=== PATIENT | female | born 1955 | race Caucasian/White ===

== ENCOUNTER 2017-08-22 11:26 | Emergency (ER) | payer MEDICARE ==
[2017-08-22 11:32] VITALS: BP 125/87; PULSE 114; RESP 20; TEMP 98.9; O2SAT 96
[2017-08-22] MEDS ORDERED: INHALER (11:36)
[2017-08-22] MEDS ORDERED: methylPREDNISolone SOD SUCC 125 MG/2 ML VIAL IV PUSH ONE (12:30)
--- NOTE | 2017-08-22 13:07 | RADRPT ---
EXAM DATE/TIME: 08/22/2017 12:45 [facility] COMPARISON: No previous studies available for comparison. INDICATIONS : Cough, short of breath MEDICAL HISTORY : None. SURGICAL HISTORY : None. ENCOUNTER: Initial ACUITY: 1 day PAIN SCORE: 0/10 LOCATION: Bilateral chest FINDINGS: Mild, fine, diffuse interstitial opacities are seen of both lungs. Normal heart size. No pleural effu skyler or pneumothorax. CONCLUSION: Diffuse mild interstitial opacities suggesting atypical pneumonia or noncardiogenic edema. Ham Lennon MD on August 22, 2017 at 13:04 Board Certified Radiologist. This report was verified electronically.
--- NOTE | 2017-08-22 13:26 | PD ---
HPI Chief Complaint: Respiratory Symptoms Time Seen by Provider: 12:02 Travel History International Travel<30 days: No Contact w/Intl Traveler<30days: No Traveled to known affect area: No History of Present Illness HPI 61 year old female with hx of asthma here for eval of cough & wheezing x 4 days. She denies fever, chills, chest pain. Symptom severity is moderate. She reports using her current albuterol inhaler 2-3 times per day over the last 4 days with only mild symptom improvement. [facility] Past Medical History Asthma: Yes Past Surgical History Section: Yes Other Surgery: Yes (PINS AND PLATES IN LEGS) Social History Alcohol Use: No Tobacco Use: No Substance Use: No Allergies-Medications (Allergen,Severity, Reaction): Coded Allergies: No Known Allergies (Unverified , 08/22/17) Reported Meds & Prescriptions Reported Meds & Active Scripts Active Tessalon Perles (Benzonatate) 100 Mg Cap 100 Mg PO TID PRN 5 Days Ventolin Hfa 18 GM Inh (Albuterol Sulfate) 90 Mcg/Act Aer 2 Puff INH Q4H PRN Prednisone 20 Mg Tab 40 Mg PO DAILY Take 40 mg (2 tablets) daily for 5 days Levaquin (Levofloxacin) 750 Mg Tablet 750 Mg PO DAILY 5 Days Reported [Inhaler] Review of Systems Except as stated in HPI: all other systems reviewed are Neg General / Constitutional: No: Fever Respiratory: Positive: Cough, Shortness of Breath, Wheezing Physical Exam Narrative GENERAL: Well-nourished, well-developed patient. In no acute distress SKIN: Focused skin assessment warm/dry. HEAD: Normocephalic. EYES: No scleral icterus. No injection or drainage. NECK: Supple, trachea midline. No JVD or lymphadenopathy. CARDIOVASCULAR: Regular rate and rhythm without murmurs, gallops, or rubs. RESPIRATORY: Breath sounds equal bilaterally. No accessory muscle use. Diffuse mild expiratory wheezes bilaterally. GASTROINTESTINAL: Abdomen soft, non-tender, nondistended. MUSCULOSKELETAL: No cyanosis, or edema. BACK: Nontender without obvious deformity. No CVA tenderness. Data Data Last Documented VS Orders Orders Chest, Single Ap (08/22/17 12:22) Methylprednisolone So Succ Inj (Solumedr (08/22/17 12:30) MDM Medical Decision Making Medical Screen Exam Complete: Yes Emergency Medical Condition: Yes Differential Diagnosis PNA,asthma, influenza Narrative Course 61 year old female with hx of asthma here for eval of cough & wheezing x 4 days. She denies fever, chills, chest pain. On exam she has diffuse mild expiratory wheezes. She is nontoxic appearing and not in respiratory distress. Patient was given IV Solu-Medrol, DuoNeb 3, and chest x-ray. Chest x-ray suggestive of atypical pneumonia. On reexam patient reports symptom improvement and requesting discharge. She will be put on Levaquin, steroids, bronchodilator, antitussives and instructed to follow-up with her PCP in one to 2 days for recheck. Return precautions discussed. Patient verbalizes understanding and agrees to plan Diagnosis Primary Impression: Pneumonia Qualified Codes: J18.9 - Pneumonia, unspecified organism Referrals: Primary Care Physician Additional Instructions: take the medications as prescribed. rest & stay well hydrated. Follow up with your primary doctor return if you develop new or worsening symptoms Scripts Benzonatate (Tessalon Perles) 100 Mg Cap 100 MG PO TID Y for COUGH for 5 Days, CAP 0 Refills Prov: Marce Rey 08/22/17 Albuterol 18 GM Inh (Ventolin Hfa 18 GM Inh) 90 Mcg/Act Aer 2 PUFF INH Q4H Y for SHORTNESS OF BREATH, #1 INHALER 0 Refills Prov: Marce Rey 08/22/17 Prednisone (Prednisone) 20 Mg Tab 40 MG PO DAILY, #10 TAB 0 Refills Take 40 mg (2 tablets) daily for 5 days Prov: Marce Rey 08/22/17 Levofloxacin (Levaquin) 750 Mg Tablet 750 MG PO DAILY for Infection for 5 Days, #5 TAB 0 Refills Prov: Marce Rey 08/22/17 Disposition: 01 DISCHARGE HOME Condition: Stable Marce Rey Aug 22, 2017 13:26
[2017-08-22 13:35] VITALS: PULSE 92; RESP 20; O2SAT 95
[2017-08-22] MEDS ORDERED: PRED20 PO (13:48)
[2017-08-22] MEDS ORDERED: BENZ100 PO (13:48)
[2017-08-22] MEDS ORDERED: VENTAER INH (13:48)
[2017-08-22] MEDS ORDERED: LEVA750T9 PO (13:48)
== END 2017-08-22 14:19 | disposition home or self-care (01) ==
LOC: PHED 11:26 → PHEFT 14:19
DX: J18.9 Pneumonia, unspecified organism (principal)
CPT/HCPCS: 71010; 96374; 99284; J2930

== ENCOUNTER 2017-10-21 12:25 | Inpatient (IN) | payer MEDICARE ==
[~2017-10-21] VITALS: Ht 162.6 cm; Wt 121.9 kg
[~2017-10-21 12:25] MED LIST: BENZ100 PO; INHALER; LEVA750T9 PO; PRED20 PO; VENTAER INH
[2017-10-21 12:27] VITALS: BP 137/70; PULSE 95; RESP 20; TEMP 101.2; O2SAT 90
[2017-10-21] MEDS ORDERED: SODIUM CHLOR 0.9% 1000 ML INJ 1,000 ML IV ONE (12:37)
[2017-10-21] MEDS ORDERED: cefTRIAXone INJ 2,000 MG in SODIUM CHLORIDE 0.9% INJ 100 ML IV STA (12:37)
[2017-10-21] MEDS ORDERED: AZITHROMYCIN 250 MG TAB PO STA (12:37)
--- NOTE | 2017-10-21 12:43 | PD ---
HPI Chief Complaint: Respiratory Distress Time Seen by Provider: 12:37 Travel History International Travel<30 days: Yes Contact w/Intl Traveler<30days: Yes Name of Country Traveled to: [place], [place] Traveled to known affect area: No History of Present Illness HPI 61-year-old female comes in status post being seen at a local urgent care and diagnosed with pneumonia. Patient is noticed to be febrile, and O2 sat of 89% on room air.. Patient states she's been sick for approximately 3 days. Patient normally does not need oxygen at home. She feels weak, wheezy, and short of breath. Patient states she does use a nebulizer at home but denies specific lung disease. Patient denies nausea or vomiting. She denies chest pain. Vital signs show probable sepsis. She has no known drug allergies. PFSH Past Medical History Asthma: Yes Past Surgical History Section: Yes Other Surgery: Yes (PINS AND PLATES IN LEGS) Social History Alcohol Use: No Tobacco Use: No Substance Use: No Allergies-Medications (Allergen,Severity, Reaction): Coded Allergies: No Known Allergies (Unverified , 10/21/17) Reported Meds & Prescriptions Reported Meds & Active Scripts Active Tessalon Perles (Benzonatate) 100 Mg Cap 100 Mg PO TID PRN 5 Days Ventolin Hfa 18 GM Inh (Albuterol Sulfate) 90 Mcg/Act Aer 2 Puff INH Q4H PRN Prednisone 20 Mg Tab 40 Mg PO DAILY Take 40 mg (2 tablets) daily for 5 days Levaquin (Levofloxacin) 750 Mg Tablet 750 Mg PO DAILY 5 Days Reported [Inhaler] Review of Systems Except as stated in HPI: all other systems reviewed are Neg General / Constitutional: Positive: Fever, Chills Eyes: No: Visual changes HENT: No: Headaches, Vertigo, Lightheadedness, Sore Throat, Rhinitis, Rhinorrhea, Congestion, Nosebleed, Neck Stiffness, Neck Pain, Earache Cardiovascular: No: Chest Pain or Discomfort Respiratory: Positive: Cough, Shortness of Breath, Wheezing, Orthopnea, Night Sweats, No: Sneezing, Hemoptysis, Stridor, Pleuritic Pain Gastrointestinal: No: Nausea, Vomiting, Diarrhea, Abdominal Pain Genitourinary: No: Dysuria Musculoskeletal: No: Pain Skin: No Rash Neurologic: No: Weakness Psychiatric: No: Depression Endocrine: No: Polydipsia Hematologic/Lymphatic: No: Easy Bruising Physical Exam Narrative GENERAL: Patient appears mildly distressed. She is able to speak in short sentences. SKIN: Warm and dry. Normal color. Normal turgor. No diaphoresis. HEAD: Atraumatic. Normocephalic. EYES: Pupils equal and round. No scleral icterus. No injection or drainage. ENT: No nasal bleeding or discharge. Mucous membranes pink and moist. Posterior pharynx is clear. Airway is patent. NECK: Trachea midline. No JVD. Supple nontender. CARDIOVASCULAR: Regular rate and rhythm. No murmurs gallops or rubs. RESPIRATORY: Mild to moderate accessory muscle use. Diffuse wheezes throughout to auscultation. Breath sounds equal bilaterally. GASTROINTESTINAL: Abdomen soft, non-tender, nondistended. Hepatic and splenic margins not palpable. MUSCULOSKELETAL: Extremities without clubbing, cyanosis, or edema. No obvious deformities. NEUROLOGICAL: Awake and alert. No obvious cranial nerve deficits. Motor grossly within normal limits. Five out of 5 muscle strength in the arms and legs. Normal speech. PSYCHIATRIC: Appropriate mood and affect; insight and judgment normal. Data Data Last Documented VS Vital Signs Date Time Temp Pulse Resp B/P (MAP) Pulse Ox O2 Delivery O2 Flow Rate FiO2 10/21/17 13:23 89 Room Air 10/21/17 13:09 2.00 10/21/17 12:27 101.2 95 20 Orders Orders Sepsis Workup Initiated (10/21/17 ) Complete Blood Count With Diff (10/21/17 12:37) Comprehensive Metabolic Panel (10/21/17 12:37) Prothrombin Time / Inr (Pt) (10/21/17 12:37) Act Partial Throm Time (Ptt) (10/21/17 12:37) Lactic Acid Sepsis Protocol (10/21/17 12:37) Magnesium (Mg) (10/21/17 12:37) Urinalysis - C+S If Indicated (10/21/17 12:37) Influenzae A/B Antigen (10/21/17 12:37) Blood Culture (10/21/17 12:37) Sputum Culture And Gram Stain (10/21/17 12:37) Chest, Pa & Lat (10/21/17 12:37) Blood Gas Venous (Vbg) (10/21/17 12:37) Ecg Monitoring (10/21/17 12:37) Iv Access Insert/Monitor (10/21/17 12:37) Oximetry (10/21/17 12:37) Oxygen Administration (10/21/17 12:37) Acetaminophen (Tylenol) (10/21/17 12:45) Ceftriaxone Inj (Rocephin Inj) (10/21/17 12:37) Azithromycin (Zithromax) (10/21/17 12:37) Albuterol-Ipratropium Neb (Duoneb Neb) (10/21/17 12:45) Methylprednisolone So Succ Inj (Solumedr (10/21/17 12:45) Sodium Chlor 0.9% 1000 Ml Inj (Ns 1000 M (10/21/17 12:37) Electrocardiogram (10/21/17 ) Oseltamivir (Tamiflu) (10/21/17 15:15) Place In Observation (10/21/17 ) Vital Signs (Adult) Q4H (10/21/17 15:33) Activity Oob With Assistance (10/21/17 15:33) Rotary Furnace Tender / Telemetry .CONTINUOUS (10/21/17 15:33) Diet Heart Healthy (10/21/17 Dinner) Sodium Chloride 0.9% Flush (Ns Flush) (10/21/17 15:45) Sodium Chloride 0.9% Flush (Ns Flush) (10/21/17 21:00) Basic Metabolic Panel (Bmp) (10/22/17 06:00) Complete Blood Count With Diff (10/22/17 06:00) Naloxone Inj (Narcan Inj) (10/21/17 15:45) Resp Oxygen Nasal Cannula (10/21/17 ) B-Type Natriuretic Peptide (10/21/17 15:33) Admit Order (Ed Use Only) (10/21/17 15:37) Labs Laboratory Tests Test 10/21/17 13:00 10/21/17 13:10 10/21/17 13:20 Urine Color YELLOW Urine Turbidity CLOUDY Urine pH 5.5 Urine Specific [place] 1.024 Urine Protein TRACE mg/dL Urine Glucose (UA) NEG mg/dL Urine Ketones 10 mg/dL Urine Occult Blood TRACE Urine Nitrite NEG Urine Bilirubin NEG Urine Urobilinogen LESS THAN 2.0 MG/DL Urine Leukocyte Esterase NEG Urine RBC 2 /hpf Urine WBC 1 /hpf Urine Squamous Epithelial Cells <1 /hpf Urine Amorphous Sediment MANY Urine Mucus FEW /lpf Microscopic Urinalysis Comment CATH-CULT NOT IND White Blood Count 7.6 TH/MM3 Red Blood Count 4.77 MIL/MM3 Hemoglobin 14.5 GM/DL Hematocrit 41.3 % Mean Corpuscular Volume 86.6 FL Mean Corpuscular Hemoglobin 30.4 PG Mean Corpuscular Hemoglobin Concent 35.1 % Red Cell Distribution Width 14.5 % Platelet Count 153 TH/MM3 Mean Platelet Volume 7.5 FL Neutrophils (%) (Auto) 72.5 % Lymphocytes (%) (Auto) 12.4 % Monocytes (%) (Auto) 12.2 % Eosinophils (%) (Auto) 2.1 % Basophils (%) (Auto) 0.8 % Neutrophils # (Auto) 5.5 TH/MM3 Lymphocytes # (Auto) 0.9 TH/MM3 Monocytes # (Auto) 0.9 TH/MM3 Eosinophils # (Auto) 0.2 TH/MM3 Basophils # (Auto) 0.1 TH/MM3 CBC Comment AUTO DIFF Differential Comment AUTO DIFF CONFIRMED Prothrombin Time 10.5 SEC Prothromb Time International Ratio 1.0 RATIO Activated Partial Thromboplast Time 24.0 SEC Blood Urea Nitrogen 10 MG/DL Creatinine 0.80 MG/DL Random Glucose 110 MG/DL Total Protein 6.8 GM/DL Albumin 3.2 GM/DL Calcium Level 8.1 MG/DL Magnesium Level 2.1 MG/DL Alkaline Phosphatase 84 U/L Aspartate Amino Transf (AST/SGOT) 64 U/L Alanine Aminotransferase (ALT/SGPT) 57 U/L Total Bilirubin 0.8 MG/DL Sodium Level 140 MEQ/L Potassium Level 3.8 MEQ/L Chloride Level 104 MEQ/L Carbon Dioxide Level 27.8 MEQ/L Anion Gap 8 MEQ/L Estimat Glomerular Filtration Rate 72 ML/MIN Lactic Acid Level 1.4 mmol/L Blood Gas Puncture Site IV Blood Gas Patient Temperature 98.6 Venous Blood pH 7.38 Venous Blood Partial Pressure CO2 39 mmHg Venous Blood Partial Pressure O2 42 mmHg Venous Blood HCO3 22 mmol/L Venous Blood Oxygen Saturation 77 % Venous Blood Oxygen Content 16.0 Vol % Venous Blood Base Excess -2.0 mmol/L Oxygen Delivery Device NASAL CANNULA Blood Gas Liter Flow 2 L/M [facility] Medical Decision Making Medical Screen Exam Complete: Yes Emergency Medical Condition: Yes Differential Diagnosis Sepsis. Pneumonia. Hypoxia. Narrative Course Patient is medically stable at time of exam. Sepsis protocol was initiated. Chest x-ray PA and lateral was ordered. Labs ordered including CBC, CMP, lactic acid protocol, rapid influenza, sputum sample and venous blood gas. DuoNeb 3 is ordered. Patient is given 125 mg Solu-Medrol IV as well as azithromycin 500 mg by mouth as well as 2000 mg Rocephin IV. Patient is given 1000 mL normal saline bolus. Chest x-ray shows mild increased interstitial markings bilaterally consistent with pneumonitis or pulmonary vascular congestion. Per radiologist. CBC is actually unremarkable except for 72.5% shift in neutrophils. Coagulation studies are normal. CMP is unremarkable except for GFR 72, random glucose 110, lactic acid is 1.4. Calcium is 8.1, AST and ALT are slightly elevated at 64 and 57 respectively. Urinalysis is unremarkable. Venous blood gas shows a PCO2 of 39, PO2 of 42, and an O2 saturation of 77. This is on 2 L of O2 via nasal cannula. Call was placed to hospitalist for admission. Diagnosis Primary Impression: Pneumonia Qualified Codes: J18.9 - Pneumonia, unspecified organism Additional Impressions: Hypoxia Influenza A Admitting Information Admitting Physician Requests: Admit Condition: Stable Khris Britton Oct 21, 2017 12:43
[2017-10-21] MEDS ORDERED: methylPREDNISolone SOD SUCC 125 MG/2 ML VIAL IV PUSH ONE (12:45)
[2017-10-21] MEDS ORDERED: ACETAMINOPHEN 325 MG TAB PO ONE (12:45)
[2017-10-21 13:09] VITALS: O2SAT 95
[2017-10-21] MEDS: RESP: ALBUTEROL 2.5 MG/IPRATROPIUM 0.5 MG NEB (SCH) INH (13:09)
[2017-10-21 13:23] VITALS: O2SAT 89
[2017-10-21 13:48] LABS: AUTOMATED NEUTROPHIL # 5.5 TH/MM3 (1.8-7.7); BASOPHIL # 0.1 TH/MM3 (0-0.2); BASOPHIL % 0.8 % (0.0-2.0); EOSINOPHIL # 0.2 TH/MM3 (0-0.4); EOSINOPHIL % 2.1 % (0.0-4.0); HEMATOCRIT 41.3 % (35.0-46.0); HEMOGLOBIN 14.5 GM/DL (11.6-15.3); LYMPH % 12.4 % (9.0-44.0); LYMPHOCYTE # 0.9 TH/MM3 (1.0-4.8); MEAN CELL VOLUME 86.6 FL (80.0-100.0); MEAN CORPUSCULAR HEMOGLOBIN 30.4 PG (27.0-34.0); MEAN CORPUSCULAR HGB CONC 35.1 % (32.0-36.0); MEAN PLATELET VOLUME 7.5 FL (7.0-11.0); MONO % 12.2 % (0.0-8.0); MONOCYTE # 0.9 TH/MM3 (0-0.9); NEUT % 72.5 % (16.0-70.0); PLATELET COUNT 153 TH/MM3 (150-450); RED BLOOD COUNT 4.77 MIL/MM3 (4.00-5.30); RED CELL DISTRIBUTION WIDTH 14.5 % (11.6-17.2); WHITE BLOOD COUNT 7.6 TH/MM3 (4.0-11.0)
[2017-10-21 13:53] LABS: AMORPHOUS SEDIMENT, URINE MANY; BLOOD, URINE TRACE (NEG); GLUCOSE,URINE NEG (NEG); KETONE, URINE 10 mg/dL (NEG); MUCUS URINE FEW /lpf (OCC); NITRITE,URINE NEG (NEG); PH, URINE 5.5 (5.0-8.5); SQUAMOUS EPITHELIAL CELL URINE <1 /hpf (0-5); URINE COLOR YELLOW (YELLW/STRAW); URINE LEUKOCYTE ESTERASE NEG (NEG)
[2017-10-21 14:00] LABS: BILIRUBIN, URINE NEG (NEG)
[2017-10-21 14:00] LABS: PROTHROMBIN TIME - PATIENT 10.5 SEC (9.8-11.6)
--- NOTE | 2017-10-21 14:07 | RADRPT ---
EXAM DATE/TIME: 10/21/2017 13:54 [facility] COMPARISON: No previous studies available for comparison. INDICATIONS : Fever, cough and repeated pneumonia. MEDICAL HISTORY : pneumonia SURGICAL HISTORY : None. ENCOUNTER: Initial ACUITY: 3 days PAIN SCORE: 0/10 LOCATION: Bilateral chest FINDINGS: There is a suboptimal inspiration. Mild increased interstitial markings are noted bilaterally consist ent with pneumonitis or pulmonary vascular congestion. CONCLUSION: 1. Mild increased interstitial markings bilaterally consistent with pneumonitis or pulmonary vascular congestion. 2. Suboptimal inspiration. Mj Downs MD on October 21, 2017 at 14:04 Board Certified Radiologist. This report was verified electronically.
[2017-10-21 14:09] LABS: ALBUMIN 3.2 GM/DL (3.4-5.0); ALKALINE PHOSPHATASE 84 U/L (45-117); ALT (GPT) 57 U/L (10-53); AST (GOT) 64 U/L (15-37); BICARBONATE 27.8 MEQ/L (21.0-32.0); BLOOD UREA NITROGEN 10 MG/DL (7-18); CALCIUM 8.1 MG/DL (8.5-10.1); CHLORIDE 104 MEQ/L (98-107); GLOMERULAR FILTRATION RATE 72 ML/MIN (>89); GLUCOSE,RANDOM 110 MG/DL (74-106); MAGNESIUM 2.1 MG/DL (1.5-2.5); SODIUM (NA) 140 MEQ/L (136-145); TOTAL BILIRUBIN ADULT 0.8 MG/DL (0.2-1.0); TOTAL PROTEIN 6.8 GM/DL (6.4-8.2)
--- NOTE | 2017-10-21 14:09 | PD ---
Physical Exam Date Seen by Provider: Oct 21, 2017 Narrative This patient was sent to us from urgent care for admission for pneumonia. She was seen there earlier today and diagnosed with pneumonia. She was sent to us because of hypoxia. She is now on oxygen and states that her breathing is okay. Data Data Last Documented VS Vital Signs Date Time Temp Pulse Resp B/P (MAP) Pulse Ox O2 Delivery O2 Flow Rate FiO2 10/21/17 13:23 89 Room Air 10/21/17 13:09 2.00 10/21/17 12:27 101.2 95 20 Orders Orders Sepsis Workup Initiated (10/21/17 ) Complete Blood Count With Diff (10/21/17 12:37) Comprehensive Metabolic Panel (10/21/17 12:37) Prothrombin Time / Inr (Pt) (10/21/17 12:37) Act Partial Throm Time (Ptt) (10/21/17 12:37) Lactic Acid Sepsis Protocol (10/21/17 12:37) Magnesium (Mg) (10/21/17 12:37) Urinalysis - C+S If Indicated (10/21/17 12:37) Influenzae A/B Antigen (10/21/17 12:37) Blood Culture (10/21/17 12:37) Sputum Culture And Gram Stain (10/21/17 12:37) Chest, Pa & Lat (10/21/17 12:37) Blood Gas Venous (Vbg) (10/21/17 12:37) Ecg Monitoring (10/21/17 12:37) Iv Access Insert/Monitor (10/21/17 12:37) Oximetry (10/21/17 12:37) Oxygen Administration (10/21/17 12:37) Acetaminophen (Tylenol) (10/21/17 12:45) Ceftriaxone Inj (Rocephin Inj) (10/21/17 12:37) Azithromycin (Zithromax) (10/21/17 12:37) Albuterol-Ipratropium Neb (Duoneb Neb) (10/21/17 12:45) Methylprednisolone So Succ Inj (Solumedr (10/21/17 12:45) Sodium Chlor 0.9% 1000 Ml Inj (Ns 1000 M (10/21/17 12:37) Electrocardiogram (10/21/17 ) Labs Laboratory Tests Test 10/21/17 13:00 10/21/17 13:10 10/21/17 13:20 Urine Color YELLOW Urine Turbidity CLOUDY Urine pH 5.5 Urine Specific [place] 1.024 Urine Protein TRACE mg/dL Urine Glucose (UA) NEG mg/dL Urine Ketones 10 mg/dL Urine Occult Blood TRACE Urine Nitrite NEG Urine Bilirubin NEG Urine Urobilinogen LESS THAN 2.0 MG/DL Urine Leukocyte Esterase NEG Urine RBC 2 /hpf Urine WBC 1 /hpf Urine Squamous Epithelial Cells <1 /hpf Urine Amorphous Sediment MANY Urine Mucus FEW /lpf Microscopic Urinalysis Comment CATH-CULT NOT IND White Blood Count 7.6 TH/MM3 Red Blood Count 4.77 MIL/MM3 Hemoglobin 14.5 GM/DL Hematocrit 41.3 % Mean Corpuscular Volume 86.6 FL Mean Corpuscular Hemoglobin 30.4 PG Mean Corpuscular Hemoglobin Concent 35.1 % Red Cell Distribution Width 14.5 % Platelet Count 153 TH/MM3 Mean Platelet Volume 7.5 FL Neutrophils (%) (Auto) 72.5 % Lymphocytes (%) (Auto) 12.4 % Monocytes (%) (Auto) 12.2 % Eosinophils (%) (Auto) 2.1 % Basophils (%) (Auto) 0.8 % Neutrophils # (Auto) 5.5 TH/MM3 Lymphocytes # (Auto) 0.9 TH/MM3 Monocytes # (Auto) 0.9 TH/MM3 Eosinophils # (Auto) 0.2 TH/MM3 Basophils # (Auto) 0.1 TH/MM3 CBC Comment AUTO DIFF Prothrombin Time 10.5 SEC Prothromb Time International Ratio 1.0 RATIO Activated Partial Thromboplast Time 24.0 SEC Lactic Acid Level 1.4 mmol/L Blood Gas Puncture Site IV Blood Gas Patient Temperature 98.6 Venous Blood pH 7.38 Venous Blood Partial Pressure CO2 39 mmHg Venous Blood Partial Pressure O2 42 mmHg Venous Blood HCO3 22 mmol/L Venous Blood Oxygen Saturation 77 % Venous Blood Oxygen Content 16.0 Vol % Venous Blood Base Excess -2.0 mmol/L Oxygen Delivery Device NASAL CANNULA Blood Gas Liter Flow 2 L/M MDM Supervised Visit with KALEB: Yes Narrative Course I, Dr. Rinaldi, have reviewed the advance practice practitioner's documentation and am in agreement, met with the patient face to face, made the diagnosis, and the medical decision making was done by me. *My assessment and Findings: This patient is awake and alert and in no respiratory distress while on oxygen. Please see Danis Britton PA-C's note for results of laboratory and radiographic evaluation, ED course, final diagnosis and disposition Condition: Alexa Collins MD Oct 21, 2017 14:09
[2017-10-21] MEDS ORDERED: OSELTAMIVIR PHOSPHATE 75 MG CAP PO ONE (15:15)
[2017-10-21] MEDS ORDERED: SODIUM CHLORIDE 0.9% FLUSH 10 ML FLUSH IV FLUSH PRN (15:45)
[2017-10-21] MEDS ORDERED: NALOXONE HCL 0.4 MG/ML AMP IV PUSH PRN (15:45)
[2017-10-21 15:59] VITALS: BP 147/68; PULSE 85; RESP 20; TEMP 97.8; O2SAT 92
--- NOTE | 2017-10-21 17:11 | HHI.HP ---
[facility] Service [facility] Primary Care Physician Anastasia Rendon MD Admission Diagnosis Influenza/Pneumonia/Hypoxia Diagnoses: (1) Hypoxia Diagnosis: Principal (2) Influenza A Diagnosis: Principal Chief Complaint: Deep cough with congestion Travel History International Travel<30 Days: Yes Contact w/Intl Traveler <30 Da: Yes Name of Country Traveled to: [place] Traveled to Known Affected Are: No History of Present Illness Written by Parker Baldwin, acting as scribe for Dr. Edwards on 10/21/17 at 17:11. 61-year-old patient with only reported past medical history of using nebulizers for occasional chest congestion and sinus congestion. reports that she she had deep chest cough , urgent care doc told her she was PNA cough started not really productive on Thursday, temp last night states she was hot. 100 temp at urgent care. SOB with cough. No chills. Denies chest pain, nausea, or diarrhea. Denies black or bloody stools, no syncope, no abdominal pain Patient just came back from 8 night rylie, she had been drinking. She repots leg swelling for a long time. No orthopnea no SOB lying down. Got back Thursday AM began to feel bad on Thursday PM No other ill contacts at home. Denies prolonged sitting [place]yl[place] took off from [place] Has never needed steroids for respiratory issues Past Family Social History Past Medical History Nebulizer to clear her lungs. Reports that at time she is not getting enough air in her lungs rx by PCP . states her o2 sats will drop when she is in her MD office. Has not been told that she needs o2 ENT for sinus symptoms Past Surgical History 3 c-sections Bilateral leg fractures with instrumentation Allergies: Coded Allergies: No Known Allergies (Unverified , 10/21/17) Family History Father esophageal CA smoker Father was a smoker and smoked in house. mother Brother: renal disease on dialysis, CAD with CABG Social History Tobacco: denies, denies second hand smoke Alcohol: Denies Illicit drug use: Denies Worked in sales, now on disability Physical Exam Vital Signs Vital Signs Date Time Temp Pulse Resp B/P (MAP) Pulse Ox O2 Delivery O2 Flow Rate FiO2 10/21/17 13:23 89 Room Air 10/21/17 13:23 89 Room Air 10/21/17 13:09 95 Nasal Cannula 2.00 10/21/17 12:27 101.2 95 20 137/70 (92) 90 Room Air Physical Exam GENERAL: This is a well-nourished, well-developed patient, in no apparent distress. SKIN: No rashes, ecchymoses or lesions. Cool and dry. HEAD: Atraumatic. Normocephalic. No temporal or scalp tenderness. EYES: Pupils equal round and reactive. Extraocular motions intact. No scleral icterus. No injection or drainage. ENT: Nose without bleeding, purulent drainage or septal hematoma. Throat without erythema, tonsillar hypertrophy or exudate. Uvula midline. Airway patent. NECK: Trachea midline. No JVD or lymphadenopathy. Supple, nontender, no meningeal signs. CARDIOVASCULAR: Regular rate and rhythm without murmurs, gallops, or rubs. RESPIRATORY: Clear to auscultation. Breath sounds equal bilaterally. No wheezes , rales, or rhonchi. GASTROINTESTINAL: Abdomen soft, non-tender, nondistended. No hepato-splenomegaly , or palpable masses. No guarding. MUSCULOSKELETAL: Extremities without clubbing, cyanosis, or edema. No joint tenderness, effusion, or edema noted. No calf tenderness. Negative Homans sign bilaterally. NEUROLOGICAL: Awake and alert. Cranial nerves II through XII intact. Motor and sensory grossly within normal limits. Five out of 5 muscle strength in all muscle groups. Normal speech. Laboratory Laboratory Tests Test 10/21/17 13:00 10/21/17 13:10 10/21/17 13:20 Urine Color YELLOW Urine Turbidity CLOUDY Urine pH 5.5 Urine Specific [place] 1.024 Urine Protein TRACE Urine Glucose (UA) NEG Urine Ketones 10 Urine Occult Blood TRACE Urine Nitrite NEG Urine Bilirubin NEG Urine Urobilinogen LESS THAN 2.0 Urine Leukocyte Esterase NEG Urine RBC 2 Urine WBC 1 Urine Squamous Epithelial Cells <1 Urine Amorphous Sediment MANY Urine Mucus FEW Microscopic Urinalysis Comment CATH-CULT NOT IND White Blood Count 7.6 Red Blood Count 4.77 Hemoglobin 14.5 Hematocrit 41.3 Mean Corpuscular Volume 86.6 Mean Corpuscular Hemoglobin 30.4 Mean Corpuscular Hemoglobin Concent 35.1 Red Cell Distribution Width 14.5 Platelet Count 153 Mean Platelet Volume 7.5 Neutrophils (%) (Auto) 72.5 Lymphocytes (%) (Auto) 12.4 Monocytes (%) (Auto) 12.2 Eosinophils (%) (Auto) 2.1 Basophils (%) (Auto) 0.8 Neutrophils # (Auto) 5.5 Lymphocytes # (Auto) 0.9 Monocytes # (Auto) 0.9 Eosinophils # (Auto) 0.2 Basophils # (Auto) 0.1 CBC Comment AUTO DIFF Differential Comment AUTO DIFF CONFIRMED Prothrombin Time 10.5 Prothromb Time International Ratio 1.0 Activated Partial Thromboplast Time 24.0 Blood Urea Nitrogen 10 Creatinine 0.80 Random Glucose 110 Total Protein 6.8 Albumin 3.2 Calcium Level 8.1 Magnesium Level 2.1 Alkaline Phosphatase 84 Aspartate Amino Transf (AST/SGOT) 64 Alanine Aminotransferase (ALT/SGPT) 57 Total Bilirubin 0.8 Sodium Level 140 Potassium Level 3.8 Chloride Level 104 Carbon Dioxide Level 27.8 Anion Gap 8 Estimat Glomerular Filtration Rate 72 Lactic Acid Level 1.4 Blood Gas Puncture Site IV Blood Gas Patient Temperature 98.6 Venous Blood pH 7.38 Venous Blood Partial Pressure CO2 39 Venous Blood Partial Pressure O2 42 Venous Blood HCO3 22 Venous Blood Oxygen Saturation 77 Venous Blood Oxygen Content 16.0 Venous Blood Base Excess -2.0 Oxygen Delivery Device NASAL CANNULA Blood Gas Liter Flow 2 Date/Time Source Procedure Growth Status 10/21/17 13:20 Blood Peripheral Aerobic Blood Culture Pending Received 10/21/17 13:20 Blood Peripheral Anaerobic Blood Culture Pending Received 10/21/17 14:20 Nasal Washing Influenza Types A,B Antigen (NACHO) - Final Positive For Flu A Antigen Complete Result Diagram: 10/21/17 1310 10/21/17 1310 Imaging Last Impressions Chest X-Ray 10/21/17 1237 Signed Impressions: Service Date/Time: Saturday, October 21, 2017 13:54 - CONCLUSION: 1. Mild increased interstitial markings bilaterally consistent with pneumonitis or pulmonary vascular congestion. 2. Suboptimal inspiration. MD Nimo De Souza VTE Risk Assessment Caprini Risk Assessment Model Point Value = 1 Point Value = 2 Point Value = 3 Point Value = 5 Age 41-60 Minor surgery BMI > 25 kg/m2 Swollen legs Varicose veins or History of unexplained or recurrent spontaneous Oral contraceptives or hormone replacement Sepsis (< 1 month) Serious lung disease, including pneumonia (< 1 month) Abnormal pulmonary function Acute myocardial infarction Congestive heart failure (< 1 month) History of inflammatory bowel disease Medical patient at bed rest Age 61-74 Arthroscopic surgery Major open surgery (> 45 min) Laparoscopic surgery (> 45 min) Malignancy Confined to bed (> 72 hours) Immobilizing plaster cast Central venous access Age >= 75 History of VTE Family history of VTE Factor V Leiden Prothrombin [id number] Lupus anticoagulant Anticardiolipin antibodies Elevated serum homocysteine Heparin-induced thrombocytopenia Other congenital or acquired thrombophilia Stroke (< 1 month) Elective arthroplasty Hip, pelvis, or leg fracture Acute spinal cord injury (< 1 month) Prophylaxis Regimen Total Risk Factor Score Risk Level Prophylaxis Regimen 0-1 Low Early ambulation 2 Moderate Order ONE of the following: *Sequential Compression Device (SCD) *Heparin 5000 units SQ BID 3-4 Higher Order ONE of the following medications: *Heparin 5000 units SQ TID *Enoxaparin/Lovenox 40 mg SQ daily (WT < 150 kg, CrCl > 30 mL/min) *Enoxaparin/Lovenox 30 mg SQ daily (WT < 150 kg, CrCl > 10-29 mL/min) *Enoxaparin/Lovenox 30 mg SQ BID (WT < 150 kg, CrCl > 30 mL/min) AND/OR *Sequential Compression Device (SCD) 5 or more Highest Order ONE of the following medications: *Heparin 5000 units SQ TID (Preferred with Epidurals) *Enoxaparin/Lovenox 40 mg SQ daily (WT < 150 kg, CrCl > 30 mL/min) *Enoxaparin/Lovenox 30 mg SQ daily (WT < 150 kg, CrCl > 10-29 mL/min) *Enoxaparin/Lovenox 30 mg SQ BID (WT < 150 kg, CrCl > 30 mL/min) AND *Sequential Compression Device (SCD) Assessment and Plan Assessment and Plan Hypoxia Parker Baldwin Oct 21, 2017 17:11
--- NOTE | 2017-10-21 17:40 | HHI.HP ---
[facility] Service [place] [facility] Primary Care Physician Anastasia Rendon MD Admission Diagnosis Influenza/Pneumonia/Hypoxia Diagnoses: (1) Hypoxia Diagnosis: Principal (2) Influenza A Diagnosis: Principal Chief Complaint: Deep cough with congestion. Travel History International Travel<30 Days: Yes Contact w/Intl Traveler <30 Da: Yes Name of Country Traveled to: [place] Traveled to Known Affected Are: No History of Present Illness Written by Parker Baldwin, acting as scribe for Dr. Edwards on 10/21/17 at 17:11. 61-year-old patient with only reported past medical history of using nebulizers for occasional chest congestion, sinus congestion, and bilateral leg fractures. Reports that she was recently on an 8 night curse which took off from [place]. During the cruise patient reports that she was drinking alcohol and noticed leg swelling, although after further questioning she reports that she has had bilateral leg swelling for some time. She returned back from her curse this past Thursday morning and that night she began to have what she describes as a deep chest cough, nonproductive. She did experience warm feeling at home but did not check her temperature at home. She endorses SOB with cough, denies orthopnea. She went to an urgent care center and was told her she had possible pneumonia. She also ports that when she was in urgent care her temperature was 100.0. She denies any chills, nausea, vomiting, diarrhea, abdominal pain, chest pain. Denies black or bloody stools, dizziness, or lightheadedness. She denies any ill contacts at home but was on a rylie with many people. She reports that she has been using nebulizer treatments at home for what she repots as chest congestion. States that her PCP has been prescribing her nebulizers since she has also had low oxygen saturation levels when she is into visit him. She denies ever needing steroids for breathing difficulties, does not use oxygen at home. She denies exposure to pain, working in coal mines or cigarette smoking. She does admit that her father was a smoker and would smoke inside the home. Review of Systems Constitutional: COMPLAINS OF: Fever Respiratory: COMPLAINS OF: Cough, Shortness of breath Cardiovascular: COMPLAINS OF: Lower Extremity Edema Except as stated in HPI: all other systems reviewed are Neg Past Family Social History Past Medical History Lung congestion for which she uses nebulizer treatments Sinus congestions, sees ENT Past Surgical History 3 c-sections Bilateral leg fractures with instrumentation and repair Reported Medications Reported Meds & Active Scripts Active Tessalon Perles (Benzonatate) 100 Mg Cap 100 Mg PO TID PRN 5 Days Ventolin Hfa 18 GM Inh (Albuterol Sulfate) 90 Mcg/Act Aer 2 Puff INH Q4H PRN Prednisone 20 Mg Tab 40 Mg PO DAILY Take 40 mg (2 tablets) daily for 5 days Levaquin (Levofloxacin) 750 Mg Tablet 750 Mg PO DAILY 5 Days Reported [Inhaler] Allergies: Coded Allergies: No Known Allergies (Unverified , 10/21/17) Family History Father: esophageal CA, smoker. Mother: , cancer unknown Brother: renal disease on dialysis, CAD with CABG Social History Tobacco: denies, denies second hand smoke Alcohol: Denies Illicit drug use: Denies Worked in sales, now on disability Physical Exam Vital Signs Vital Signs Date Time Temp Pulse Resp B/P (MAP) Pulse Ox O2 Delivery O2 Flow Rate FiO2 10/21/17 13:23 89 Room Air 10/21/17 13:23 89 Room Air 10/21/17 13:09 95 Nasal Cannula 2.00 10/21/17 12:27 101.2 95 20 137/70 (92) 90 Room Air Physical Exam GENERAL: This is a well-developed obese female, mild respiratory distress. SKIN: No rashes, ecchymoses or lesions. Cool and dry. HEAD: Atraumatic. Normocephalic. No temporal or scalp tenderness. EYES: Pupils equal round and reactive. Extraocular motions intact. No scleral icterus. No injection or drainage. ENT: Nose without bleeding, purulent drainage or septal hematoma. Airway patent. NECK: Trachea midline. No JVD . Supple, nontender. CARDIOVASCULAR: Regular rate and rhythm without murmurs, gallops, or rubs. RESPIRATORY: Bilateral lobe crackles on bases. GASTROINTESTINAL: Abdomen soft, non-tender, nondistended. MUSCULOSKELETAL: Extremities without clubbing, cyanosis, bilateral foot edema, bilateral leg edema trace. No joint tenderness, effusion, or edema noted. No calf tenderness. NEUROLOGICAL: Awake and alert. Motor and sensory grossly within normal limits. Normal speech. Laboratory Laboratory Tests Test 10/21/17 13:00 10/21/17 13:10 10/21/17 13:20 Urine Color YELLOW Urine Turbidity CLOUDY Urine pH 5.5 Urine Specific [place] 1.024 Urine Protein TRACE Urine Glucose (UA) NEG Urine Ketones 10 Urine Occult Blood TRACE Urine Nitrite NEG Urine Bilirubin NEG Urine Urobilinogen LESS THAN 2.0 Urine Leukocyte Esterase NEG Urine RBC 2 Urine WBC 1 Urine Squamous Epithelial Cells <1 Urine Amorphous Sediment MANY Urine Mucus FEW Microscopic Urinalysis Comment CATH-CULT NOT IND White Blood Count 7.6 Red Blood Count 4.77 Hemoglobin 14.5 Hematocrit 41.3 Mean Corpuscular Volume 86.6 Mean Corpuscular Hemoglobin 30.4 Mean Corpuscular Hemoglobin Concent 35.1 Red Cell Distribution Width 14.5 Platelet Count 153 Mean Platelet Volume 7.5 Neutrophils (%) (Auto) 72.5 Lymphocytes (%) (Auto) 12.4 Monocytes (%) (Auto) 12.2 Eosinophils (%) (Auto) 2.1 Basophils (%) (Auto) 0.8 Neutrophils # (Auto) 5.5 Lymphocytes # (Auto) 0.9 Monocytes # (Auto) 0.9 Eosinophils # (Auto) 0.2 Basophils # (Auto) 0.1 CBC Comment AUTO DIFF Differential Comment AUTO DIFF CONFIRMED Prothrombin Time 10.5 Prothromb Time International Ratio 1.0 Activated Partial Thromboplast Time 24.0 Blood Urea Nitrogen 10 Creatinine 0.80 Random Glucose 110 Total Protein 6.8 Albumin 3.2 Calcium Level 8.1 Magnesium Level 2.1 Alkaline Phosphatase 84 Aspartate Amino Transf (AST/SGOT) 64 Alanine Aminotransferase (ALT/SGPT) 57 Total Bilirubin 0.8 Sodium Level 140 Potassium Level 3.8 Chloride Level 104 Carbon Dioxide Level 27.8 Anion Gap 8 Estimat Glomerular Filtration Rate 72 Lactic Acid Level 1.4 Blood Gas Puncture Site IV Blood Gas Patient Temperature 98.6 Venous Blood pH 7.38 Venous Blood Partial Pressure CO2 39 Venous Blood Partial Pressure O2 42 Venous Blood HCO3 22 Venous Blood Oxygen Saturation 77 Venous Blood Oxygen Content 16.0 Venous Blood Base Excess -2.0 Oxygen Delivery Device NASAL CANNULA Blood Gas Liter Flow 2 Date/Time Source Procedure Growth Status 10/21/17 13:20 Blood Peripheral Aerobic Blood Culture Pending Received 10/21/17 13:20 Blood Peripheral Anaerobic Blood Culture Pending Received 10/21/17 14:20 Nasal Washing Influenza Types A,B Antigen (NACHO) - Final Positive For Flu A Antigen Complete Result Diagram: 10/21/17 1310 10/21/17 1310 Imaging Last Impressions Chest X-Ray 10/21/17 1237 Signed Impressions: Service Date/Time: Saturday, October 21, 2017 13:54 - CONCLUSION: 1. Mild increased interstitial markings bilaterally consistent with pneumonitis or pulmonary vascular congestion. 2. Suboptimal inspiration. Mj Downs MD [place] VTE Risk Assessment Caprini VTE Risk Assessment: Mod/High Risk (score >= 2) Caprini Risk Assessment Model Point Value = 1 Point Value = 2 Point Value = 3 Point Value = 5 Age 41-60 Minor surgery BMI > 25 kg/m2 Swollen legs Varicose veins or History of unexplained or recurrent spontaneous Oral contraceptives or hormone replacement Sepsis (< 1 month) Serious lung disease, including pneumonia (< 1 month) Abnormal pulmonary function Acute myocardial infarction Congestive heart failure (< 1 month) History of inflammatory bowel disease Medical patient at bed rest Age 61-74 Arthroscopic surgery Major open surgery (> 45 min) Laparoscopic surgery (> 45 min) Malignancy Confined to bed (> 72 hours) Immobilizing plaster cast Central venous access Age >= 75 History of VTE Family history of VTE Factor V Leiden Prothrombin [id number] Lupus anticoagulant Anticardiolipin antibodies Elevated serum homocysteine Heparin-induced thrombocytopenia Other congenital or acquired thrombophilia Stroke (< 1 month) Elective arthroplasty Hip, pelvis, or leg fracture Acute spinal cord injury (< 1 month) Prophylaxis Regimen Total Risk Factor Score Risk Level Prophylaxis Regimen 0-1 Low Early ambulation 2 Moderate Order ONE of the following: *Sequential Compression Device (SCD) *Heparin 5000 units SQ BID 3-4 Higher Order ONE of the following medications: *Heparin 5000 units SQ TID *Enoxaparin/Lovenox 40 mg SQ daily (WT < 150 kg, CrCl > 30 mL/min) *Enoxaparin/Lovenox 30 mg SQ daily (WT < 150 kg, CrCl > 10-29 mL/min) *Enoxaparin/Lovenox 30 mg SQ BID (WT < 150 kg, CrCl > 30 mL/min) AND/OR *Sequential Compression Device (SCD) 5 or more Highest Order ONE of the following medications: *Heparin 5000 units SQ TID (Preferred with Epidurals) *Enoxaparin/Lovenox 40 mg SQ daily (WT < 150 kg, CrCl > 30 mL/min) *Enoxaparin/Lovenox 30 mg SQ daily (WT < 150 kg, CrCl > 10-29 mL/min) *Enoxaparin/Lovenox 30 mg SQ BID (WT < 150 kg, CrCl > 30 mL/min) AND *Sequential Compression Device (SCD) Assessment and Plan Problem List: (1) Hypoxia ICD Code: R09.02 - Hypoxemia Status: Acute (2) Influenza A ICD Code: J10.1 - Influenza due to other identified influenza virus with other respiratory manifestations Status: Acute Assessment and Plan 61-year-old female who recently returned from an 8 night rylie shortly after began experiencing what she describes as a deep nonproductive cough, fevers and SOB. Patient's past medical history of chest congestions and sinus congestion. Influenza A + Cough with hypoxia possible pneumonia - Patient repots that she has a history of hypoxia with no real diagnosis from her PCP, will use nebulizers at home for chest congestion relief. Suspect she may have underlying COPD that is not diagnosed. Father with history of smoking in the home. - T-max on admission 101.2 with O2 sat 90% on room air. - CBC reviewed, no elevation on WBC count, neutrophils 72.5% - Chest x-ray reviewed showing mild increased interstitial markings bilaterally consistent with pneumonitis or pulmonary vascular congestion. - Blood cultures X2 obtained, sputum culture obtained pending. UA negative - O2 via NC - Duonebs - tamiflu though window is questionable - Place on PO Levaquin, continue to monitor clinically - Will plan for walk test in the future when acute issue is resolved Bilateral leg edema with hypoxia - ? CHF due as patient repots bilateral leg swelling for some time now - Will check BNP as well as 2D echo to evaluate heart. - will give trial of small dose lasix 20mg iv q12hrs for now, to see if improvement- also with mild elev BNP VTE- with lovenox This note was transcribed by meron [Parker Baldwin]. I, Dr. Lamine Edwards personally performed the history, physical exam, and medical decision making; and confirmed the accuracy of the information in the transcribed note. Authenticated by Dr. Lamine Edwards on 10/21/17 at 17:11. Discussed Condition With patient, ER PA, nursing staff Physician Certification 2 Midnight Certification Type: Admission for Inpatient Services Order for Inpatient Services The services are ordered in accordance with Medicare regulations or non- Medicare payer requirements, as applicable. In the case of services not specified as inpatient-only, they are appropriately provided as inpatient services in accordance with the 2-midnight benchmark. Estimated LOS (days): 3 days is the estimated time the patient will need to remain in the hospital, assuming treatment plan goals are met and no additional complications. Post-Hospital Plan: [place] Parker Baldwin Oct 21, 2017 17:40 Lamine Edwards MD Oct 21, 2017 21:39
[2017-10-21] MEDS ORDERED: RESP: ALBUTEROL 2.5 MG/IPRATROPIUM 0.5 MG NEB (PRN) NEB (17:45)
[2017-10-21 20:13] VITALS: PULSE 87
[2017-10-21 20:35] VITALS: BP 143/83; PULSE 87; RESP 16; TEMP 97.7; O2SAT 98
[2017-10-21] MEDS: SODIUM CHLORIDE 0.9% FLUSH 10 ML FLUSH IV FLUSH SCH (23:01)
[2017-10-22] VITALS (7 sets, daily range): BP systolic 140–163; BP diastolic 73–80; PULSE 75–86; RESP 16–20; TEMP 97.4–98; O2SAT 92–96
[2017-10-22] MEDS: SODIUM CHLORIDE 0.9% FLUSH 10 ML FLUSH IV FLUSH SCH (08:29)
[2017-10-22] MEDS: FUROSEMIDE 20 MG/2 ML VIAL IV PUSH SCH ×2 (08:30→18:00)
[2017-10-22 08:46] LABS: AUTOMATED NEUTROPHIL # 5.4 TH/MM3 (1.8-7.7); BASOPHIL % 0.3 % (0.0-2.0); HEMATOCRIT 39.5 % (35.0-46.0); HEMOGLOBIN 13.6 GM/DL (11.6-15.3); LYMPH % 11.9 % (9.0-44.0); LYMPHOCYTE # 0.8 TH/MM3 (1.0-4.8); MEAN CELL VOLUME 87.4 FL (80.0-100.0); MEAN CORPUSCULAR HEMOGLOBIN 30.1 PG (27.0-34.0); MEAN CORPUSCULAR HGB CONC 34.4 % (32.0-36.0); MONO % 5.7 % (0.0-8.0); MONOCYTE # 0.4 TH/MM3 (0-0.9); NEUT % 82.1 % (16.0-70.0); PLATELET COUNT 154 TH/MM3 (150-450); RED BLOOD COUNT 4.52 MIL/MM3 (4.00-5.30); RED CELL DISTRIBUTION WIDTH 14.9 % (11.6-17.2); WHITE BLOOD COUNT 6.5 TH/MM3 (4.0-11.0)
[2017-10-22] MEDS ORDERED: ENOXAPARIN SODIUM 40 MG/0.4 ML SYRINGE SQ SCH (09:00)
[2017-10-22] MEDS ORDERED: OSELTAMIVIR PHOSPHATE 75 MG CAP PO SCH (09:00)
[2017-10-22] MEDS ORDERED: LEVOFLOXACIN 750 MG TAB PO SCH (09:00)
[2017-10-22] MEDS ORDERED: FUROSEMIDE 20 MG/2 ML VIAL IV PUSH SCH (09:00)
[2017-10-22 09:14] LABS: BICARBONATE 24.7 MEQ/L (21.0-32.0); CALCIUM 8.3 MG/DL (8.5-10.1); CREATININE 0.59 MG/DL (0.50-1.00)
--- NOTE | 2017-10-22 12:31 | HHI.PR ---
Subjective Remarks Patient reports she is feeling better. No chest pain. Denies shortness of breath. Objective Vitals Vital Signs Date Time Temp Pulse Resp B/P (MAP) Pulse Ox O2 Delivery O2 Flow Rate FiO2 10/22/17 08:00 76 10/22/17 08:00 Nasal Cannula 2.00 10/22/17 06:56 97.8 85 16 155/74 (101) 96 10/22/17 04:27 Nasal Cannula 2.00 10/22/17 03:59 80 10/22/17 00:28 97.4 86 16 163/73 (103) 96 10/22/17 00:00 Nasal Cannula 2.00 10/22/17 00:00 86 10/21/17 20:35 97.7 87 16 143/83 (103) 98 10/21/17 20:13 87 10/21/17 20:00 Nasal Cannula 2.00 10/21/17 15:59 97.8 85 20 147/68 (94) 92 10/21/17 13:23 89 Room Air 10/21/17 13:23 89 Room Air 10/21/17 13:09 95 Nasal Cannula 2.00 I/O 10/21/17 10/21/17 10/21/17 10/22/17 10/22/17 10/22/17 06:59 14:59 22:59 06:59 14:59 22:59 Intake Total 1100 ml 480 ml Balance 1100 ml 480 ml Intake Oral 480 ml IV Total 1100 ml # Voids 4 Result Diagram: 10/22/17 0630 10/22/17 0630 Imaging Last Impressions Chest X-Ray 10/21/17 1237 Signed Impressions: Service Date/Time: Saturday, October 21, 2017 13:54 - CONCLUSION: 1. Mild increased interstitial markings bilaterally consistent with pneumonitis or pulmonary vascular congestion. 2. Suboptimal inspiration. Mj Downs MD Objective Remarks GENERAL: Obese female in no apparent distress. CARDIOVASCULAR: Normal rate and regular rhythm without murmurs, gallops, or rubs. RESPIRATORY: Good respiratory efforts. Breath sounds equal and clear to auscultation bilaterally. GASTROINTESTINAL: Abdomen soft, non-tender, non-distended. Normal active bowel sounds MUSCULOSKELETAL: Extremities without cyanosis, or edema. NEURO: Alert & Oriented x4 to person, place, time, situation. Moves all ext x4 PSYCH: Appropriate mood and affect. A/P Problem List: (1) Hypoxia ICD Code: R09.02 - Hypoxemia Status: Acute (2) Influenza A ICD Code: J10.1 - Influenza due to other identified influenza virus with other respiratory manifestations Status: Acute Assessment and Plan 61-year-old female who recently returned from an 8 night rylie shortly after began experiencing what she describes as a deep nonproductive cough, fevers and SOB. Patient has an abnormal chest x-ray showing and positive for influenza A. Symptoms and clinical picture more consistent with pneumonia secondary to influenza. She was hypoxemic on presentation The patient was admitted and treated with Tamiflu and Levaquin was added due to concern for superimposed bacterial infection. Her symptoms improved. The patient passed home oxygen test. She is discharge home to complete the course of treatment with Tamiflu and Levaquin. Patient also had complaint of bilateral leg edema. However BNP was only about 100. This is likely dependent edema. She was advised to elevate legs and avoid a high salt diet. Patient is advised to follow-up outpatient with PCP. Discharge Planning Discharge home in good condition Follow up with: PCP Diet: Heart healthy Activity: Regular as tolerated Meds: Per med rec Kathryn Pollock MD Oct 22, 2017 12:31
[2017-10-22] MEDS ORDERED: OSEL75 PO (16:27)
[2017-10-22] MEDS ORDERED: LEVA750T9 PO (16:27)
--- NOTE | 2017-10-22 16:34 | HHI.DCPOC ---
Discharge Care Plan Diagnosis: (1) Pneumonia (2) Influenza A (3) Hypoxia Goals to Promote Your Health * To prevent worsening of your condition and complications * To maintain your health at the optimal level Directions to Meet Your Goals Take your medications as prescribed Follow your dietary instruction Follow activity as directed Keep your appointments as scheduled Take your immunizations and boosters as scheduled If your symptoms worsen call your PCP, if no PCP go to Urgent Care Center or Emergency Room Smoking is Dangerous to Your Health. Avoid second hand smoke Call the 24-hour hour crisis hotline for domestic abuse at Kathryn Pollock MD Oct 22, 2017 16:34
--- NOTE | 2017-10-23 23:50 | EKG ---
Date Performed: 10/21/2017 Time Performed: 14:58:52 PTAGE: 61 years EKG: Sinus rhythm MARKED LEFT AXIS DEVIATION LEFT VENTRICULAR HYPERTROPHY AND ST-T CHANGE ABNORMAL ECG NO PREVIOUS TRACING DOCTOR: Marc Velázquez Interpretating Date/Time 10/23/2017 23:49:30
== END 2017-10-22 18:38 | disposition home or self-care (01) | DRG 195 ==
LOC: NEPD 12:25 → NEDA 15:40 → INTOOBSV 15:40 → N04B 16:11 → OBSVTOIN 17:47
PROVIDERS: ADMIT Family Medicine; ATTEND Family Medicine
PROC: 3E0F7GC Introduction of Other Therapeutic Substance into Respiratory Tract, Via Natural or Artificial Opening (ICD-10-PCS; principal; 2017-10-21)
DX: J09.X1 Influenza due to identified novel influenza A virus with pneumonia (principal); J45.909 Unspecified asthma, uncomplicated; R09.02 Hypoxemia; R06.03 Acute respiratory distress; Z84.1 Family history of disorders of kidney and ureter; Z80.0 Family history of malignant neoplasm of digestive organs; Z82.49 Family history of ischemic heart disease and other diseases of the circulatory system
CPT/HCPCS: 71046; 80048; 80053; 81001; 82805; 83605; 83735; 83880; 85025; 85610; 85730; 87040; 87804; 93005; 94618; 94640; 94664; 96365; 96375; J0696; J1650; J1940; J2930; J7030

== ENCOUNTER → 2017-12-11 | Outpatient (CLI) | payer MEDICARE ==
[~2017-12-11] MED LIST changes: +OSEL75 PO
--- NOTE | 2017-12-11 11:44 | RADRPT ---
EXAM DATE/TIME: 12/11/2017 00:00 [place] COMPARISON: No previous studies available for comparison. INDICATIONS : Intermittent DYSPHAGIA FLUORO TIME: 1.0 minutes IMAGE COUNT: 0 CONTRAST: Dose as prescribed by speech pathologist. MEDICAL HISTORY : pneumonia SURGICAL HISTORY : None. ENCOUNTER: Initial ACUITY: 2 days PAIN SCORE: 0/10 LOCATION: Bilateral neck FINDINGS: A modified barium swallow was performed with speech pathology. Patient was given a variety of liquids to swallow. No episodes of aspiration observed. For a full detailed report, see report by the speech pathologist. CONCLUSION: Coordinated mechanism of swallowing. No aspiration seen. Ish Beltran MD on December 11, 2017 at 11:42 Board Certified Radiologist. This report was verified electronically.
== END ==
LOC: HRAD 09:47
PROVIDERS: ATTEND Internal Medicine Pulmonary Disease
DX: R13.10 Dysphagia, unspecified (principal)
CPT/HCPCS: 74230; 92611; G8996; G8997; G8998

== ENCOUNTER → 2017-12-17 | Outpatient (CLI) | payer MEDICARE ==
--- NOTE | 2017-12-22 08:19 | RSPPFT ---
DATE OF PROCEDURE: 12/17/17 COMMENTS: Spirometry with FVC of 1.7 predicted 2.7, FEV1 of 1.5 predicted 2.1, FEV1/FVC ratio 84% predicted 83%. Lung volumes are mildly decreased with TLC at 3.3 predicted 4.7. DLCO is 66% of predicted. IMPRESSION: On the basis of the above, patient has a mild restrictive lung defect.
== END ==
LOC: HRSP 10:36
PROVIDERS: ATTEND Internal Medicine Pulmonary Disease
DX: R05 Cough (principal)
CPT/HCPCS: 36600; 82805; 94060; 94618; 94726; 94729